=== PATIENT | male | born 1965 | race Caucasian/White ===

== ENCOUNTER 2017-07-21 15:42 | Emergency (ER) | payer MEDICAID, SELFPAY ==
[~2017-07-21] VITALS: Ht 188 cm; Wt 110.9 kg
[2017-07-21] MEDS ORDERED: SODIUM CHLORIDE 0.9% 1,000ML IVBOLUS ONE (16:00)
[2017-07-21 16:24] LABS: HEMOGLOBIN 12.3 g/dL (13.7-18.0); WHITE BLOOD COUNT 7.3 x10^3/uL (3.4-10)
[2017-07-21 16:36] LABS: ASPARTATE AMINO TRANSFERASE 23 U/L (15-37); BLOOD UREA NITROGEN 18 mg/dL (7-18)
[2017-07-21 17:39] VITALS: BP 128/78
== END 2017-07-21 17:42 | disposition home or self-care (01) ==
LOC: ED 16:20
DX: H81.399 Other peripheral vertigo, unspecified ear (principal); H81.10 Benign paroxysmal vertigo, unspecified ear; R42 Dizziness and giddiness
CPT/HCPCS: 36415; 80053; 85025; 93005; 96360; 99285; J7030

== ENCOUNTER 2017-08-21 15:16 | Emergency (ER) | payer MEDICAID ==
[~2017-08-21] VITALS: Ht 188 cm; Wt 104.0 kg
[2017-08-21 15:25] VITALS: BP 138/86
[2017-08-21] MEDS ORDERED: IBUPROFEN 200 MG TABLET ONE (16:25)
[2017-08-21] MEDS ORDERED: IBUPROFEN 200 MG TABLET PO ONE (16:30)
== END 2017-08-21 17:00 | disposition home or self-care (01) ==
LOC: ED 15:58
DX: S43.52XA Sprain of left acromioclavicular joint, initial encounter (principal); S43.51XA Sprain of right acromioclavicular joint, initial encounter; S60.012A Contusion of left thumb without damage to nail, initial encounter; X50.1XXA Overexertion from prolonged static or awkward postures, initial encounter; Y93.89 Activity, other specified; Y92.410 Unspecified street and highway as the place of occurrence of the external cause; Y99.9 Unspecified external cause status
CPT/HCPCS: 29125; 93005; 99284; 99285

== ENCOUNTER 2018-07-02 17:32 | Emergency (ER) | payer MEDICAID, OTHER ==
[~2018-07-02] VITALS: Ht 188 cm; Wt 101.2 kg
[2018-07-02 17:53] VITALS: BP 123/74
== END 2018-07-02 18:27 | disposition home or self-care (01) ==
LOC: ED 18:20
DX: L24.9 Irritant contact dermatitis, unspecified cause (principal); Z87.891 Personal history of nicotine dependence
CPT/HCPCS: 99283

== ENCOUNTER 2019-08-02 11:56 | Emergency (ER) | payer MEDICAID ==
[~2019-08-02] VITALS: Ht 188 cm; Wt 102.3 kg
--- NOTE | 2019-08-02 12:14 | NUR ---
Pt ambulatory to ED from home c/o dizziness. SR 70s. dizzy x3 months. went to doctor yesterday but did not receive satisfactory care. was told he had vertigo more than a year ago. was given meclizine. no relief. md at bedside for eval. A&Ox4 GCS 15. c/o some nausea. no vomiting. "feels like i'm underwater". vss.
[2019-08-02] MEDS ORDERED: LEVO150T PO (12:21)
[2019-08-02 12:45] LABS: BASOPHILS # (AUTO) 0.03 x10^3/uL (0-0.1); BASOPHILS % (AUTO) 0 % (0-1); EOSINOPHILS # (AUTO) 0.12 x10^3/uL (0-0.4); EOSINOPHILS % (AUTO) 2 % (1-7); LYMPHOCYTES # (AUTO) 1.26 x10^3/uL (1-3.4); LYMPHOCYTES % (AUTO) 17 % (22-44); MD NO; MEAN CORPUSCULAR HEMOGLOBIN 32.5 pg (27.5-34.5); MEAN CORPUSCULAR HGB CONC 33.1 g/dL (33.2-36.2); MONOCYTES # (AUTO) 0.38 x10^3/uL (0.2-0.8); MONOCYTES % (AUTO) 5 % (2-9); NEUTROPHILS # (AUTO) 5.83 x10^3/uL (1.8-6.8); NEUTROPHILS % (AUTO) 77 % (42-75); PLATELET COUNT 281 x10^3/uL (130-400); RED BLOOD COUNT 4.68 x10^6/uL (4.38-5.82); RED CELL DISTRIBUTION WIDTH 14.8 % (9.4-14.8)
[2019-08-02 12:55] LABS: ALANINE AMINOTRANSFERASE 146 U/L (12-78); ALBUMIN 4.5 g/dL (3.4-5.0); ANION GAP 9 mmol/L (5-15); CALCIUM 9.1 mg/dL (8.5-10.1); CHLORIDE 104 mmol/L (98-107)
[2019-08-02 12:59] LABS: MICROSCOPIC NOT IND
--- NOTE | 2019-08-02 13:00 | NUR ---
UA sent. pt A&Ox4. gait steady. awaiting xr. sts sometimes his vision feels funny.
--- NOTE | 2019-08-02 13:10 | NUR ---
Pt back from xr. dizziness comes and goes, sts "it's not that bad right now". denies nausea. slightly hypertensive, used to take bp meds, stopped taking bp meds last year bc bp was improved.
[2019-08-02 13:12] LABS: ALKALINE PHOSPHATASE 53 U/L (45-117); BILIRUBIN,TOTAL 1.6 mg/dL (0.2-1.0); CREATININE 1.14 mg/dL (0.7-1.3); TOTAL PROTEIN 8.5 g/dL (6.4-8.2)
[2019-08-02 13:13] LABS: CULTURE INDICATED? NO
--- NOTE | 2019-08-02 13:34 | NUR ---
tsh and cxr pending.
--- NOTE | 2019-08-02 14:05 | NUR ---
F/U CALL PLACED TO LAB REGARDING DELAY IN TSH LEVEL. TECH STS PUSHING THROUGH RESULT NOW
--- NOTE | 2019-08-02 14:16 | NUR ---
t4 pending. pt updated. given blanket. vss. NAD. call morales in reach.
[2019-08-02 14:17] VITALS: BP 135/90
[2019-08-02 14:27] LABS: FREE T4 (FREE THYROXINE) 0.26 ng/dL (0.76-1.46)
--- NOTE | 2019-08-02 15:03 | NUR ---
MADIHA ROTH IS DISCHARGING THE PT. FOR THE PRIMARY CARE RN. PT. WAS GIVEN DISCHARGE INSTRUCTIONS AND A SCRIPT. UNDERSTANDING VERBALIZED ALONG WITH WILLINGNESS TO COMPLY. PT. WAS AMBULATORY TO THE DISCHARGE DESK. VSS.
== END 2019-08-02 15:12 | disposition home or self-care (01) ==
LOC: ED 15:06
DX: I10 Essential (primary) hypertension (principal); E03.9 Hypothyroidism, unspecified; R74.0 Nonspecific elevation of levels of transaminase and lactic acid dehydrogenase [LDH]
CPT/HCPCS: 36415; 71046; 80053; 81003; 84439; 84443; 85025; 93005; 99284

== ENCOUNTER → 2021-01-28 | Outpatient (CLI) | payer MEDICAID ==
[~2021-01-28] MED LIST: AMIT25TA PO; LAMO25TB7 PO; LEVO150T PO; LISI5TAB7 PO; ROSU20TA2 PO
== END | disposition home or self-care (01) ==
LOC: RAD 09:40
PROVIDERS: ATTEND Internal Medicine Infectious Disease
DX: J90 Pleural effusion, not elsewhere classified (principal); M86.142 Other acute osteomyelitis, left hand; R91.8 Other nonspecific abnormal finding of lung field; R91.1 Solitary pulmonary nodule
CPT/HCPCS: 71046

== ENCOUNTER → 2021-02-01 | Outpatient (CLI) | payer MEDICAID ==
[~2021-02-01] MED LIST changes: +OMNIPAQUE 350 MG/ML, 75ML BOTTLE ONE
== END | disposition home or self-care (01) ==
LOC: CFH 14:23
PROVIDERS: ATTEND Internal Medicine Infectious Disease
DX: J18.9 Pneumonia, unspecified organism (principal); M86.142 Other acute osteomyelitis, left hand
CPT/HCPCS: 71260; Q9967

== ENCOUNTER → 2021-02-14 | Outpatient (CLI) | payer MEDICAID ==
[~2021-02-14] MED LIST changes: -OMNIPAQUE 350 MG/ML, 75ML BOTTLE ONE
== END | disposition home or self-care (01) ==
LOC: RAD 13:42
PROVIDERS: ATTEND Internal Medicine Infectious Disease
DX: J82.89 Other pulmonary eosinophilia, not elsewhere classified (principal)
CPT/HCPCS: 71046